=== PATIENT | male | born 1945 | race Caucasian/White ===

== ENCOUNTER 2017-10-14 11:42 | Emergency (ER) | payer MEDICARE, OTHER, SELFPAY ==
[2017-10-14 11:45] VITALS: BP 142/73; PULSE 104; RESP 18; TEMP 36.5; O2SAT 100; BMI 25.1
--- NOTE | 2017-10-14 11:59 | DI.RAD.S_ITS ---
PROCEDURE: XR CHEST 1V INDICATIONS: chest pain TECHNIQUE: One view of the chest was acquired. COMPARISON: None. FINDINGS: Surgical changes and devices: None. Lungs and pleura: No pleural effusions or pneumothorax. Lungs are clear. Mediastinum: Mediastinal contours appear normal. Heart size is normal. Bones and chest wall: No suspicious bony lesions. Overlying soft tissues appear unremarkable. IMPRESSION: No acute cardiopulmonary pathology. Dictated by: Nasim Jalloh M.D. on 10/14/2017 at 12:12 Approved by: Nasim Jalloh M.D. on 10/14/2017 at 12:12
--- NOTE | 2017-10-14 12:13 | ED.SYNCOPE ---
HPI - Syncope <Mitra Putnam PA-C - Last Filed: 10/14/17 17:27> General Chief Complaint: Syncope Stated Complaint: fainted earlier,abnormal ekg Time Seen by Provider: 10/14/17 12:12 Source: patient Mode of arrival: ambulatory Limitations: no limitations History of Present Illness HPI narrative: This 72-year-old male is sent to ED from urgent care today for syncopal episode. He got out of bed this morning and went into the bathroom. He was only out for a few minutes. 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 His saw him pass out. She states that he fell straight to the floor on his side. She states that he was completely ?out?, despite her shaking him and trying to wake him up. She states that this took a few minutes, and initially he seemed groggy and was not able to answer questions correctly (thought the year was 2014). She states that he seemed confused for as much as 30 min, then seemed mentally back to normal. She did not note any appearance of facial or extremity weakness nor any seizure-like activity. Currently, patient states he has a slight headache in his mandaen is sore where he fell. He does not have any neck pain. He denies any other new symptoms today such as chest pain, dyspnea, palpitations. He does not have any vomiting or nausea currently. He has had some intermittent loose stools up to 3 times daily for about a month for which he recently saw his PCP. He has not had any changes today. He has been doing his normal activities, perhaps a little bit less food intake due to the diarrhea. Syncopal episode occurred about 5 and 1/2 hr ago. He has not had any symptoms like this before. He does note that a few months ago he increased his lisinopril back to 20 mg daily and his blood pressure was on the low side at home after this happened, systolic blood pressure 104. Related Data Home Medications Medication Instructions Recorded Confirmed aspirin [Aspir-81] 81 mg PO DAILY 10/14/17 10/14/17 cetirizine [Zyrtec] 10 mg PO DAILY 10/14/17 10/14/17 cholecalciferol (vitamin D3) 2,000 unit PO DAILY 10/14/17 10/14/17 [Vitamin D3] lisinopril 20 mg PO DAILY 10/14/17 10/14/17 Allergies Allergy/AdvReac Type Severity Reaction Status Date / Time No Known Drug Allergies Allergy Verified 10/14/17 11:50 Review of Systems <Mitra Putnam PA-C - Last Filed: 10/14/17 17:27> Review of Systems All systems reviewed & are unremarkable except as noted in HPI and below Exam <Mitra Putnam PA-C - Last Filed: 10/14/17 17:27> Narrative Exam Narrative: GENERAL APPEARANCE: Patient sitting comfortably, in no distress. HEENT: PERRL, EOMI, normal TMs and oropharynx. There is no hematoma over the right mandaen but he is mildly tender. NECK: Supple, no masses LUNGS: Clear to auscultation bilaterally. HEART: Rate and rhythm regular without murmur, normal S1 and S2, no S3 or S4. ABDOMEN: Soft, NT, ND, + BS x 4 quadrants NEUROLOGIC: Alert and oriented, normal speech, gait and coordination. There is no facial droop, no pronator drift in the extremities. MUSCULOSKELETAL: No point tenderness over the cervical spine. Full Csp AROM DERM: No exanthem Initial Vital Signs Initial Vital Signs: Vital Signs Temperature 97.7 F 10/14/17 11:45 Pulse Rate 104 H 10/14/17 11:45 Respiratory Rate 18 10/14/17 11:45 Blood Pressure 142/73 H 10/14/17 11:45 Pulse Oximetry 100 10/14/17 11:45 <Deepika Grant DO - Last Filed: 10/17/17 12:27> Initial Vital Signs Initial Vital Signs: Vital Signs Temperature 97.7 F 10/14/17 11:45 Pulse Rate 104 H 10/14/17 11:45 Respiratory Rate 18 10/14/17 11:45 Blood Pressure 142/73 H 10/14/17 11:45 Pulse Oximetry 100 10/14/17 11:45 Scores <BRIANA Ramírez Last Filed: 10/14/17 17:27> PERC Score Age greater than or equal to 50 years: Yes Heart rate greater than or equal to 100 bpm: No Room Air O2 Sat less than 95%: No Unilateral leg swelling: No Recent trauma or surgery: No Hemoptysis: No Prior PE or DVT: No Hormone Use: No Total PERC Score: 1 Course <Mitra Putnam PA-C - Last Filed: 10/14/17 17:27> Additional Information: Patient is currently feeling normal as he was at home prior to being seen at urgent care. Urgent care physician felt that he was well enough to come by private vehicle. He has been completely asymptomatic during his stay. Noted his blood pressure on the monitor 102/57, consistent with his low home reading this morning. He did not take his lisinopril this morning secondary to this. Explained that this episode could be related to low blood pressure, however also possibility of seizure given his period of confusion afterwards, or cardiac mediated. Advised follow-up is needed including echocardiogram and possible seizure evaluation. Advised to call PCP and leave a message regarding appointment tomorrow as well as 1st thing in the morning to be seen tomorrow, and he is agreeable. He and his agreed that he would call 911 if any recurrent symptoms or just not feeling right in the interim. They are comfortable with this plan. EKG, lab and exam findings reviewed with Dr. Grant who is agreeable with d/c. Patient advised not to drive until advised by PCP. Orders Ordered: Discontinued Medications Aspirin (Aspirin Chew) 324 mg PO NOW ONE Stop: 10/14/17 12:00 Last Admin: 10/14/17 12:17 Dose: 324 mg Vital Signs - 8 hr 10/14/17 11:45 10/14/17 13:10 10/14/17 13:30 Temperature 97.7 F Pulse Rate 104 H 86 87 Pulse Rate [Orthostatic Lying] Pulse Rate [Orthostatic Sitting] Pulse Rate [Orthostatic Standing] Respiratory Rate 18 17 22 Blood Pressure 142/73 H Blood Pressure [Orthostatic Lying] Blood Pressure [Orthostatic Sitting] Blood Pressure [Orthostatic Standing] Blood Pressure [Right Arm] 102/57 L 109/64 Pulse Oximetry 100 98 97 10/14/17 13:56 10/14/17 14:00 Temperature Pulse Rate 87 Pulse Rate [Orthostatic Lying] 85 Pulse Rate [Orthostatic Sitting] 90 Pulse Rate [Orthostatic Standing] 89 Respiratory Rate 21 Blood Pressure Blood Pressure [Orthostatic Lying] 109/64 Blood Pressure [Orthostatic Sitting] 128/68 Blood Pressure [Orthostatic Standing] 116/70 Blood Pressure [Right Arm] 108/62 Pulse Oximetry 99 <Deepika Grant DO - Last Filed: 10/17/17 12:27> Orders Ordered: Discontinued Medications Aspirin (Aspirin Chew) 324 mg PO NOW ONE Stop: 10/14/17 12:00 Last Admin: 10/14/17 12:17 Dose: 324 mg Vital Signs - 8 hr 10/14/17 11:45 10/14/17 13:10 10/14/17 13:30 Temperature 97.7 F Pulse Rate 104 H 86 87 Pulse Rate [Orthostatic Lying] Pulse Rate [Orthostatic Sitting] Pulse Rate [Orthostatic Standing] Respiratory Rate 18 17 22 Blood Pressure 142/73 H Blood Pressure [Orthostatic Lying] Blood Pressure [Orthostatic Sitting] Blood Pressure [Orthostatic Standing] Blood Pressure [Right Arm] 102/57 L 109/64 Pulse Oximetry 100 98 97 10/14/17 13:56 10/14/17 14:00 Temperature Pulse Rate 87 Pulse Rate [Orthostatic Lying] 85 Pulse Rate [Orthostatic Sitting] 90 Pulse Rate [Orthostatic Standing] 89 Respiratory Rate 21 Blood Pressure Blood Pressure [Orthostatic Lying] 109/64 Blood Pressure [Orthostatic Sitting] 128/68 Blood Pressure [Orthostatic Standing] 116/70 Blood Pressure [Right Arm] 108/62 Pulse Oximetry 99 MDM - Syncope <Mitra Putnam PA-C - Last Filed: 10/14/17 17:27> Lab Data Attestation: I reviewed the patient's lab results. Result diagrams: 10/14/17 12:40 10/14/17 12:40 Lab Results 10/14/17 10/14/17 10/14/17 Range/Units 12:40 12:40 12:40 WBC 8.8 (4.5-11.0) X10^3/uL RBC 4.54 (4.5-5.9) X10^6/uL Hgb 14.9 (13.5-17.5) g/dL Hct 43.2 (41-53) % MCV 95.3 (80-100) fL MCH 32.9 (26-34) PG MCHC 34.5 (30-36) % RDW 12.8 (11.6-14.8) % Plt Count 235 (150-400) X10^3/uL Neut % (Auto) 73.5 (50-75) % Lymph % (Auto) 15.6 L (25-40) % Davidson % (Auto) 8.2 (3-14) % Eos % (Auto) 2.1 (2-4) % Baso % (Auto) 0.6 (0-2) % Neut # (Auto) 6500 H (1981-9301) /uL PT 11.2 (10.1-12.7) SECONDS INR 1.0 (0.9-1.3) APTT 25 L (26.4-36.2) SECONDS D-Dimer (<230) ng/mL Sodium 142 (137-145) mmol/L Potassium 4.8 (3.4-5.1) mmol/L Chloride 104 (98-107) mmol/L Carbon Dioxide 27 (22-32) mmol/L BUN 18 (9-20) mg/dL Creatinine 1.20 (0.66-1.25) mg/dL Estimated GFR 59.2 L (>60) mL/min BUN/Creatinine Ratio 15.0 (6-22) Glucose 84 (80-110) mg/dL Calcium 9.9 (8.4-10.2) mg/dL Total Bilirubin 0.7 (0.2-1.3) mg/dL AST 26 (17-59) IU/L ALT 26 (21-72) IU/L Alkaline Phosphatase 62 (38-126) U/L Total Creatine Kinase 106 (55-170) U/L CK-MB (CK-2) 1.01 (<2.37) ng/mL CK-MB (CK-2) Rel Index 1.0 L (1.5-5.0) % Troponin I < 0.012 (0.01-0.034) ng/mL Total Protein 8.0 (6.3-8.2) g/dL Albumin 4.7 (3.5-5.0) g/dL Globulin 3.3 (1.7-4.1) g/dL Albumin/Globulin Ratio 1.4 (1.0-2.8) Lipase 140 (23-300) U/L 10/14/17 Range/Units 12:40 WBC (4.5-11.0) X10^3/uL RBC (4.5-5.9) X10^6/uL Hgb (13.5-17.5) g/dL Hct (41-53) % MCV (80-100) fL MCH (26-34) PG MCHC (30-36) % RDW (11.6-14.8) % Plt Count (150-400) X10^3/uL Neut % (Auto) (50-75) % Lymph % (Auto) (25-40) % Davidson % (Auto) (3-14) % Eos % (Auto) (2-4) % Baso % (Auto) (0-2) % Neut # (Auto) (8436-7466) /uL PT (10.1-12.7) SECONDS INR (0.9-1.3) APTT (26.4-36.2) SECONDS D-Dimer 316 H (<230) ng/mL Sodium (137-145) mmol/L Potassium (3.4-5.1) mmol/L Chloride (98-107) mmol/L Carbon Dioxide (22-32) mmol/L BUN (9-20) mg/dL Creatinine (0.66-1.25) mg/dL Estimated GFR (>60) mL/min BUN/Creatinine Ratio (6-22) Glucose (80-110) mg/dL Calcium (8.4-10.2) mg/dL Total Bilirubin (0.2-1.3) mg/dL AST (17-59) IU/L ALT (21-72) IU/L Alkaline Phosphatase (38-126) U/L Total Creatine Kinase (55-170) U/L CK-MB (CK-2) (<2.37) ng/mL CK-MB (CK-2) Rel Index (1.5-5.0) % Troponin I (0.01-0.034) ng/mL Total Protein (6.3-8.2) g/dL Albumin (3.5-5.0) g/dL Globulin (1.7-4.1) g/dL Albumin/Globulin Ratio (1.0-2.8) Lipase (23-300) U/L Imaging Data Chest x-ray: Radiologist's impression: View Report History [address] [address] XRay Report Signed Patient: Nikolas Higuera JR MR#: [id number] : 1945 Acct:[id number] Age/Sex: 72 / M Date of Service: 10/14/17 Loc: ED Accession Number: [id number] Procedure: XR chest 1V Ordering Provider: Deepika Grant D.O. PROCEDURE: XR CHEST 1V INDICATIONS: chest pain TECHNIQUE: One view of the chest was acquired. COMPARISON: None. FINDINGS: Surgical changes and devices: None. Lungs and pleura: No pleural effusions or pneumothorax. Lungs are clear. Mediastinum: Mediastinal contours appear normal. Heart size is normal. Bones and chest wall: No suspicious bony lesions. Overlying soft tissues appear unremarkable. IMPRESSION: No acute cardiopulmonary pathology. Dictated by: Nasim Jalloh M.D. on 10/14/2017 at 12:12 Approved by: Nasim Jalloh M.D. on 10/14/2017 at 12:12 CT scan - head: Radiologist's impression: [place] [address] CT Scan Report Signed Patient: Nikolas Higuera JR MR#: [id number] : 1945 Acct:[id number] Age/Sex: 72 / M Date of Service: 10/14/17 Loc: ED Accession Number: [id number] Procedure: CT head/brain wo con Ordering Provider: Mitra Putnam P.A-C PROCEDURE: CT HEAD/BRAIN WO CON INDICATIONS: SYNCOPE, L. mandaen contusion TECHNIQUE: Noncontrast 4.5 mm thick angled axial sections acquired from the foramen magnum to the vertex, with coronal and sagittal reformats. For radiation dose reduction, the following was used: automated exposure control, adjustment of mA and/or kV according to patient size. COMPARISON: None. FINDINGS: Image quality: Excellent. CSF spaces: Basal cisterns are patent. No extra-axial fluid collections. The ventricles are symmetric in size and shape. Brain: No intracranial bleeds or masses. There is cerebral volume loss for age, with resultant ventricular and sulcal prominence. There are periventricular and deep white matter chronic small vessel ischemic changes. There is intracranial internal carotid artery atherosclerosis. Skull and face: Calvarium and visualized facial bones appear intact, without suspicious lesions. Sinuses: Mucosal thickening in bilateral ethmoid sinuses are seen. Mild mucosal thickening in bilateral inferior maxillary sinuses also noted. Bilateral master air cells are well-aerated. IMPRESSION: 1. No CT evidence of acute intracranial pathology. Atrophy and mild to moderate periventricular white matter microangiopathic changes. 2. Mucosal thickening involving bilateral ethmoid sinuses and maxillary sinuses. Dictated by: Nasim Jalloh M.D. on 10/14/2017 at 12:52 Approved by: Nasim Jalloh M.D. on 10/14/2017 at 12:53 ECG Data Attestation: I personally reviewed and interpreted this ECG as follows: (Normal sinus rhythm with LAD and right bundle branch pattern, unchanged from 90 min prior to arrival) Prior ECG tracings: available for review (urgent care prior to arrival) <Deepika Grant DO - Last Filed: 10/17/17 12:27> Lab Data Lab Results 10/14/17 10/14/17 10/14/17 Range/Units 12:40 12:40 12:40 WBC 8.8 (4.5-11.0) X10^3/uL RBC 4.54 (4.5-5.9) X10^6/uL Hgb 14.9 (13.5-17.5) g/dL Hct 43.2 (41-53) % MCV 95.3 (80-100) fL MCH 32.9 (26-34) PG MCHC 34.5 (30-36) % RDW 12.8 (11.6-14.8) % Plt Count 235 (150-400) X10^3/uL Neut % (Auto) 73.5 (50-75) % Lymph % (Auto) 15.6 L (25-40) % Davidson % (Auto) 8.2 (3-14) % Eos % (Auto) 2.1 (2-4) % Baso % (Auto) 0.6 (0-2) % Neut # (Auto) 6500 H (5227-1168) /uL PT 11.2 (10.1-12.7) SECONDS INR 1.0 (0.9-1.3) APTT 25 L (26.4-36.2) SECONDS D-Dimer (<230) ng/mL Sodium 142 (137-145) mmol/L Potassium 4.8 (3.4-5.1) mmol/L Chloride 104 (98-107) mmol/L Carbon Dioxide 27 (22-32) mmol/L BUN 18 (9-20) mg/dL Creatinine 1.20 (0.66-1.25) mg/dL Estimated GFR 59.2 L (>60) mL/min BUN/Creatinine Ratio 15.0 (6-22) Glucose 84 (80-110) mg/dL Calcium 9.9 (8.4-10.2) mg/dL Total Bilirubin 0.7 (0.2-1.3) mg/dL AST 26 (17-59) IU/L ALT 26 (21-72) IU/L Alkaline Phosphatase 62 (38-126) U/L Total Creatine Kinase 106 (55-170) U/L CK-MB (CK-2) 1.01 (<2.37) ng/mL CK-MB (CK-2) Rel Index 1.0 L (1.5-5.0) % Troponin I < 0.012 (0.01-0.034) ng/mL Total Protein 8.0 (6.3-8.2) g/dL Albumin 4.7 (3.5-5.0) g/dL Globulin 3.3 (1.7-4.1) g/dL Albumin/Globulin Ratio 1.4 (1.0-2.8) Lipase 140 (23-300) U/L 10/14/17 Range/Units 12:40 WBC (4.5-11.0) X10^3/uL RBC (4.5-5.9) X10^6/uL Hgb (13.5-17.5) g/dL Hct (41-53) % MCV (80-100) fL MCH (26-34) PG MCHC (30-36) % RDW (11.6-14.8) % Plt Count (150-400) X10^3/uL Neut % (Auto) (50-75) % Lymph % (Auto) (25-40) % Davidson % (Auto) (3-14) % Eos % (Auto) (2-4) % Baso % (Auto) (0-2) % Neut # (Auto) (9285-4694) /uL PT (10.1-12.7) SECONDS INR (0.9-1.3) APTT (26.4-36.2) SECONDS D-Dimer 316 H (<230) ng/mL Sodium (137-145) mmol/L Potassium (3.4-5.1) mmol/L Chloride (98-107) mmol/L Carbon Dioxide (22-32) mmol/L BUN (9-20) mg/dL Creatinine (0.66-1.25) mg/dL Estimated GFR (>60) mL/min BUN/Creatinine Ratio (6-22) Glucose (80-110) mg/dL Calcium (8.4-10.2) mg/dL Total Bilirubin (0.2-1.3) mg/dL AST (17-59) IU/L ALT (21-72) IU/L Alkaline Phosphatase (38-126) U/L Total Creatine Kinase (55-170) U/L CK-MB (CK-2) (<2.37) ng/mL CK-MB (CK-2) Rel Index (1.5-5.0) % Troponin I (0.01-0.034) ng/mL Total Protein (6.3-8.2) g/dL Albumin (3.5-5.0) g/dL Globulin (1.7-4.1) g/dL Albumin/Globulin Ratio (1.0-2.8) Lipase (23-300) U/L Discharge Plan Departure Patient Disposition: Home Clinical Impression: Syncope Discharge Date/Time: 10/14/17 14:27 Interventions: ED Discharge Assessment Last Done: 10/14/17 14:26 Instructions: DI for Syncope in Adults (Fainting) Activity Restrictions/Additional Instructions: Please return as we talked about if you have any recurrent symptoms or are not feeling right. Otherwise, please leave a message with your primary care office today that you were here and need to be seen tomorrow for follow-up, then call 1st thing in the morning when they open for an appointment. The source of your fainting was not clear from your testing today. We did not find any acute problem with your heart or brain. It is possible that this was related to low blood pressure. Please take your EKG with you that was done by Dr. Marinelli. Do not take your lisinopril for now. Check a few relaxed blood pressure reading between this afternoon and your appointment tomorrow if you are able. Have fluids and something salty to eat today. You should not drive until you have follow-up and determine what, if any, other testing you may need such as echocardiogram or evaluation for seizures. Prescriptions: No Action lisinopril 20 mg Tablet 20 mg PO DAILY RF: 0 cetirizine [Zyrtec] 10 mg Tablet 10 mg PO DAILY RF: 0 aspirin [Aspir-81] 81 mg Tablet,Delayed Release (Dr/Ec) 81 mg PO DAILY RF: 0 cholecalciferol (vitamin D3) [Vitamin D3] 2,000 unit Capsule 2,000 unit PO DAILY RF: 0 Referrals: Majo Platt MD [Non-Staff] - <Deepika Grant DO - Last Filed: 10/17/17 12:27> Cosign ED Attending Cosignature Attestation: I was immediately available in the department for consultation. EKG was reviewed. This documentation has been reviewed and I agree with assessment and plan. Supervised by Deepika Grant DO
[2017-10-14] MEDS: ASPIRIN 81 MG TAB 324 MG PO (12:17)
--- NOTE | 2017-10-14 12:35 | DI.CT.S_ITS ---
PROCEDURE: CT HEAD/BRAIN WO CON INDICATIONS: SYNCOPE, L. oriental orthodox contusion TECHNIQUE: Noncontrast 4.5 mm thick angled axial sections acquired from the foramen magnum to the vertex, with coronal and sagittal reformats. For radiation dose reduction, the following was used: automated exposure control, adjustment of mA and/or kV according to patient size. COMPARISON: None. FINDINGS: Image quality: Excellent. CSF spaces: Basal cisterns are patent. No extra-axial fluid collections. The ventricles are symmetric in size and shape. Brain: No intracranial bleeds or masses. There is cerebral volume loss for age, with resultant ventricular and sulcal prominence. There are periventricular and deep white matter chronic small vessel ischemic changes. There is intracranial internal carotid artery atherosclerosis. Skull and face: Calvarium and visualized facial bones appear intact, without suspicious lesions. Sinuses: Mucosal thickening in bilateral ethmoid sinuses are seen. Mild mucosal thickening in bilateral inferior maxillary sinuses also noted. Bilateral master air cells are well-aerated. IMPRESSION: 1. No CT evidence of acute intracranial pathology. Atrophy and mild to moderate periventricular white matter microangiopathic changes. 2. Mucosal thickening involving bilateral ethmoid sinuses and maxillary sinuses. Dictated by: Nasim Jalloh M.D. on 10/14/2017 at 12:52 Approved by: Nasim Jalloh M.D. on 10/14/2017 at 12:53
[2017-10-14 12:50] LABS: Add Manual Diff / Slide Review NO; Basophils Percent Auto 0.6 % (0-2); Eosinophils Percent Auto 2.1 % (2-4); Hematocrit 43.2 % (41-53); Hemoglobin 14.9 g/dL (13.5-17.5); Lymphocytes Percent Auto 15.6 % (25-40); Mean Corpuscular HGB Conc 34.5 % (30-36); Mean Corpuscular Hemoglobin 32.9 PG (26-34); Mean Corpuscular Volume 95.3 fL (80-100); Monocytes Percent Auto 8.2 % (3-14); Neutrophils Absolute Auto 6500 /uL (3000-5900); Neutrophils Percent Auto 73.5 % (50-75); Platelet Count 235 X10^3/uL (150-400); Red Blood Cell Count 4.54 X10^6/uL (4.5-5.9); Red Cell Distribution Width 12.8 % (11.6-14.8); White Blood Cell Count 8.8 X10^3/uL (4.5-11.0)
[2017-10-14 13:02] LABS: Alanine Aminotransferase 26 IU/L (21-72); Albumin 4.7 g/dL (3.5-5.0); Albumin Globulin Ratio 1.4 (1.0-2.8); Alkaline Phosphatase 62 U/L (38-126); Aspartate Aminotransferase 26 IU/L (17-59); Bilirubin Total 0.7 mg/dL (0.2-1.3); Blood Urea Nitrogen 18 mg/dL (9-20); Calcium 9.9 mg/dL (8.4-10.2); Carbon Dioxide 27 mmol/L (22-32); Chloride 104 mmol/L (98-107); Creatine Kinase 106 U/L (55-170); Estimated Glomerular Filt Rate 59.2 mL/min (>60); Globulin 3.3 g/dL (1.7-4.1); Glucose 84 mg/dL (80-110); HEMOLYSIS < 15 (0-50); Lipase 140 U/L (23-300); Potassium 4.8 mmol/L (3.4-5.1); Prothrombin Time 11.2 SECONDS (10.1-12.7); Sodium 142 mmol/L (137-145)
[2017-10-14 13:04] LABS: PTT Partial Thromboplastin Tim 25 SECONDS (26.4-36.2)
[2017-10-14 13:06] LABS: D Dimer 316 ng/mL (<230)
[2017-10-14 13:10] VITALS: BP 102/57; PULSE 86; RESP 17; O2SAT 98
[2017-10-14 13:13] LABS: Troponin I < 0.012 ng/mL (0.01-0.034)
[2017-10-14 13:18] LABS: Creatine Kinase MB 1.01 ng/mL (<2.37)
[2017-10-14 13:30] VITALS: BP 109/64; PULSE 87; RESP 22; O2SAT 97
[2017-10-14 13:56] VITALS: BP 109/64; BP 116/70; BP 128/68; PULSE 85; PULSE 89; PULSE 90
[2017-10-14 14:00] VITALS: BP 108/62; PULSE 87; RESP 21; O2SAT 99
== END 2017-10-14 14:27 | disposition home or self-care (01) ==
PROVIDERS: Emergency Medicine; Emergency Provider Internal Medicine
DX: R55 Syncope and collapse (principal)
CPT/HCPCS: 36415; 70450; 71045; 80053; 82550; 82553; 83690; 84484; 85025; 85379; 85610; 85730; 93005; 93010; 99283; 99285

== ENCOUNTER 2017-12-18 07:56 | Day surgery (SDC) | payer MEDICARE, OTHER, SELFPAY ==
[2017-12-18 08:15] VITALS: BP 131/76; PULSE 93; RESP 24; TEMP 36.6; O2SAT 99; BMI 25.1
[2017-12-18] MEDS: SODIUM CHLORIDE 0.9% 1,000 ML 70 ML IV (08:15)
--- NOTE | 2017-12-18 08:16 | P.HP_ITS ---
History of Present Illness Date Patient Seen: 12/18/17 Chief complaint: colonoscopy [id number] Narrative: 72-year-old male room who is here for colon polyp surveillance. Last colonoscopy performed 2007 at [facility], report is not available but patient states he had no polyps on that exam. The colonoscopy prior to that he did have polyps. Patient History Medical History HTN (hypertension) (Chronic) Lumbar degenerative disc disease (Chronic) History of prostate cancer (Resolved) Surgical History History of prostatectomy (Resolved) Family & Social History Tobacco & Substance use: Smoking Status Never smoker alcohol intake frequency 0-2 drinks per day Substance Use Type does not use Meds Home Medications Medication Instructions Recorded Confirmed Type aspirin [Aspir-81] 81 mg PO DAILY 10/14/17 12/18/17 History cetirizine [Zyrtec] 10 mg PO DAILY 10/14/17 12/18/17 History cholecalciferol (vitamin D3) 2,000 unit PO DAILY 10/14/17 12/18/17 History [Vitamin D3] lisinopril 20 mg PO DAILY 10/14/17 12/18/17 History Allergies Allergy/AdvReac Type Severity Reaction Status Date / Time No Known Drug Allergies Allergy Verified 10/14/17 11:50 Review of Systems Review of Systems All systems reviewed & are unremarkable except as noted in HPI and below Exam Narrative Exam Narrative: General: Patient is well developed, not in apparent distress Cardiovascular: Regular rate and rhythm, no murmurs, rubs, or gallops; no evidence of edema; no palpable abdominal aortic aneurysm Gastrointestinal: Normoactive bowel sounds, soft, nontender, nondistended, no rebound tenderness, no hepatosplenomegaly, no evidence of hernia Assessment & Plan Plan: Assessment/Plan Narrative: 72-year-old male with history of colon polyps here for polyp surveillance by means of colonoscopy Regarding the procedure(s), the risks and potential complications, benefits, and alternatives (including not doing the procedure) were discussed with the patient. The risks include but are not limited to bleeding, splenic injury, infection, perforation which may require surgical intervention, missed lesions, and adverse reactions to sedative medicines. After a question and answer period , the patient agreed to proceed with the procedure(s) and gives informed consent.
--- NOTE | 2017-12-18 09:30 | PM.OP.ENDO ---
Operative Date/Time/Diagnoses Date of procedure: 12/18/17 Procedure Notes Procedure in detail: Surgeon: Kendrick Arias MD Procedure: Colonoscopy Preoperative diagnosis: Colon polyp surveillance Postoperative diagnosis: Grade 2 internal hemorrhoids Medications: Conscious sedation using 4 mg IV of Midazolam and 100 mcg IV of Fentanyl Preanesthesia Assessment An H and P was performed/updated and the Px?s ASA class is 2. The procedure was discussed in detail with the patient. The potential risks and complications including infection, bleeding, missed lesions, perforation, need for surgery in case of perforation, prolonged hospital stay, and were explained. A brief question and answer period was allotted and once all questions were answered, informed consent was obtained. The patient was brought back to the procedure room and placed on standard monitoring. The patient?s vital signs were monitored continuously throughout the entire procedure. Prior to starting, a timeout was performed to confirm the patient?s identity, allergies, medications, and procedure. Procedure in detail The patient was placed in left lateral decubitus position and once adequate sedation was obtained a GIBSON was performed. The digital rectal examination did not reveal any palpable lesions. The tip of the colonoscope was placed in the anal canal and advanced without difficulty all the way to the cecum which was identified by the appendiceal orifice and the ileocecal valve. The terminal ileum was intubated to a distance of 5 cm from the ileocecal valve with no note of mucosal abnormality. The colonoscope was brought back to the cecum and careful examination of all rosenberg of the colon was performed with irrigation of any residual stool The colonic mucosa appeared normal with no evidence of polyps. In the sigmoid colon there was note of a few scattered medium-sized diverticula. Retroflexion was performed in the rectum which revealed grade 2 internal hemorrhoids. The patient tolerated the procedure well and will be brought back to the recovery area to be discharged once criteria are met. The prep was judged to be good/excellent and adequate to identify polyps less than 5 mm. The withdrawal time was 9 min. The total physician intraservice time was 13 min. Complications There were no complications and estimated blood loss was zero. Recommendations: Resume previous diet Continue outPx medications Given patient's age and findings on this colonoscopy and prior colonoscopy no further polyp surveillance is warranted An emergency contact number was given to the patient for any complications related to the procedure
--- NOTE | 2017-12-18 09:36 | SUR.OPER ---
Cecum reached at 0936.
[2017-12-18 09:48] VITALS: BP 89/58; PULSE 84; RESP 14; TEMP 37.2; O2SAT 94
--- NOTE | 2017-12-18 09:54 | PM.DS.1 ---
History of Present Illness Chief complaint: colonoscopy 26231 Narrative: 72-year-old male room who is here for colon polyp surveillance. Last colonoscopy performed 2007 at [facility], report is not available but patient states he had no polyps on that exam. The colonoscopy prior to that he did have polyps. Discharge Providers Primary care physician: Majo Platt MD Discharge provider: Kendrick Arias MD Discharge Date: 12/18/17 Exam Vital Signs (past 8 hours): - 12/18/17 08:15 12/18/17 09:48 Temperature 98 F 99 F Pulse Rate 93 H 84 Respiratory Rate 24 14 Blood Pressure 131/76 89/58 L Pulse Oximetry 99 94 Oxygen Delivery Method Room Air Narrative Exam Narrative: General: Patient is well developed, not in apparent distress Cardiovascular: Regular rate and rhythm, no murmurs, rubs, or gallops; no evidence of edema; no palpable abdominal aortic aneurysm Gastrointestinal: Normoactive bowel sounds, soft, nontender, nondistended, no rebound tenderness, no hepatosplenomegaly, no evidence of hernia Discharge Plan Discharge Plan Patient Disposition: Home Discharge Med Rec/Prescriptions Prescriptions: Continue lisinopril 20 mg Tablet 20 mg PO DAILY RF: 0 cetirizine [Zyrtec] 10 mg Tablet 10 mg PO DAILY RF: 0 aspirin [Aspir-81] 81 mg Tablet,Delayed Release (Dr/Ec) 81 mg PO DAILY RF: 0 cholecalciferol (vitamin D3) [Vitamin D3] 2,000 unit Capsule 2,000 unit PO DAILY RF: 0 Discharge Orders: Discharge (Order); Ordered 12/18/17 Ordered By: Kendrick Arias Provider Discharge Instructions Diet: Diet as Tolerated Visit Report/Discharge Packet Stand Alone Forms: Surgery Discharge Discharge Data Primary Care Provider: Majo Platt Attending Provider: Kendrick Arias
[2017-12-18] MEDS: fentaNYL 250 MCG/5 ML INJ IV (10:01)
[2017-12-18] MEDS: MIDAZOLAM 5 MG/5 ML VIAL IV (10:02)
[2017-12-18 10:13] VITALS: BP 103/58; PULSE 86; RESP 15; TEMP 36.6; O2SAT 96
[2017-12-18 10:30] VITALS: BP 105/68; PULSE 87; RESP 16; TEMP 36.6; O2SAT 99
== END 2017-12-18 10:35 | disposition home or self-care (01) ==
PROVIDERS: PCP Family Medicine; Visit Provider Internal Medicine Gastroenterology
PROC: 0DJD8ZZ Inspection of Lower Intestinal Tract, Via Natural or Artificial Opening Endoscopic (ICD-10-PCS; CPT 45378; principal; 2017-12-18 10:00)
DX: Z86.010 Personal history of colon polyps (principal); K57.30 Diverticulosis of large intestine without perforation or abscess without bleeding; I10 Essential (primary) hypertension
CPT/HCPCS: G0105; J2250; J3010

== ENCOUNTER 2018-01-07 08:05 | Emergency (ER) | payer MEDICARE, OTHER, SELFPAY ==
[2018-01-07 08:16] VITALS: BP 127/62; PULSE 90; RESP 10; TEMP 36.6; O2SAT 100
--- NOTE | 2018-01-07 08:42 | ED.SYNCOPE ---
HPI - Syncope General Chief Complaint: Syncope Stated Complaint: Syncope Time Seen by Provider: 01/07/18 08:18 Source: patient and EMS Mode of arrival: EMS Limitations: no limitations History of Present Illness HPI narrative: He is a 72-year-old male who presents after syncopal episode. He states he got up to urinate this morning when he passed out for under a minute. He remembers trying to grab the towel rack to hold on any woke up to his over him. He denies any chest pain heart palpitations blurry vision normal. He takes aspirin daily. This happen to him 1 other time in October while urinating. At that time he had head CT blood work. He has no complaints. Denies any injury during the fall. He did not hit his head. He is feeling better. Prodromal symptoms: none Witnessed: yes - by bystander Context: standing up (while urinating) History: previous syncopal episode Treatments prior to arrival: none Related Data Home Medications Medication Instructions Recorded Confirmed aspirin [Aspir-81] 81 mg PO DAILY 10/14/17 01/07/18 cetirizine [Zyrtec] 10 mg PO DAILY 10/14/17 01/07/18 cholecalciferol (vitamin D3) 2,000 unit PO DAILY 10/14/17 01/07/18 [Vitamin D3] lisinopril 20 mg PO DAILY 10/14/17 01/07/18 Allergies Allergy/AdvReac Type Severity Reaction Status Date / Time No Known Drug Allergies Allergy Verified 10/14/17 11:50 Review of Systems Review of Systems All systems reviewed & are unremarkable except as noted in HPI and below Constitutional Denies chills, Denies fever(s), Denies lethargy and Denies weakness Eyes Denies change in vision, Denies eye discharge, Denies irritation and Denies loss of vision ENT Ears, Nose, Mouth, and Throat: Denies change in voice, Denies neck pain and Denies sore throat Cardiovascular Reports as per HPI, Reports syncope, Denies dyspnea and Denies dyspnea on exertion Respiratory Denies cough, Denies dyspnea, Denies dyspnea on exertion and Denies wheezing Gastrointestinal Gastrointestinal: Denies abdominal pain, Denies change in bowel habits, Denies diarrhea, Denies nausea and Denies vomiting Musculoskeletal Denies back pain and Denies neck pain Integumentary/Breasts Denies pruritus, Denies erythema, Denies rash and Denies wounds Neurologic Reports syncope, Denies focal weakness, Denies loss of vision, Denies convulsions and Denies weakness Allergic/Immunologic Denies wheezing [facility] Medical History HTN (hypertension) (Chronic) Lumbar degenerative disc disease (Chronic) History of prostate cancer (Resolved) Surgical History History of prostatectomy (Resolved) Social History household members: spouse Smoking Status: Never smoker Exam Initial Vital Signs Initial Vital Signs: Vital Signs Temperature 98 F 01/07/18 08:16 Pulse Rate 90 01/07/18 08:16 Respiratory Rate 10 L 01/07/18 08:16 Blood Pressure 127/62 01/07/18 08:16 Pulse Oximetry 100 01/07/18 08:16 GENERAL: Alert well-appearing elderly male in no acute distress HEENT: Head atraumatic no contusions no depressions,EOMI, pupils reactive, face symmetric, CARDIOVASCULAR: Regular rate and rhythm without murmurs, rubs or gallops. RESPIRATORY: Breath sounds equal bilaterally, no wheezes rales or rhonchi. ABDOMEN: Soft, nontender. Normoactive bowel sounds all 4 quadrants. No guarding or rebound. EXTREMITIES: Normal range of motion, no clubbing or edema. Neurovascularly intact NEUROLOGICAL: Alert and oriented x4.Normal gait and speech. Cranial nerves II through XII grossly intact. SKIN: Warm, dry, no laceration, no petechiae, no rashes or lesions. Scores NIH Stroke Scale Level of Conciousness: Alert, keenly responsive Ask month/age: Answers both questions correctly. Open/close eyes, close hand: Performs both tasks correctly Best gaze horizontal: Normal Visual ruiz: No visual loss Facial palsy: Normal symetrical movement Left arm drift: No drift for full 10 sec Right arm drift: No drift for full 10 sec Left leg drift: No drift for full 10 sec Right leg drift: No drift for full 10 sec Limb ataxia: Absent Sensory on face/arms/legs: Normal, no sensory loss Best language: No aphasia, normal Dysarthria: Normal Extinction or inattention: No abnormality Total NIH Stroke scale score: 0 Course Orders Ordered: ED Orders 01/07/18 08:40 Complete Blood Count AUTO DIFF Stat Comprehensive Metabolic Panel Stat Troponin & CK Cardiac Panel Stat 01/07/18 09:05 Urinalysis and Microscopic Stat Vital Signs - 8 hr 01/07/18 09:45 Pulse Rate 80 Respiratory Rate 17 Blood Pressure [Right Arm] 114/58 L Pulse Oximetry 100 MDM - Syncope Lab Data Attestation: I reviewed the patient's lab results. Result diagrams: 01/07/18 08:40 01/07/18 08:40 Lab Results 01/07/18 01/07/18 01/07/18 Range/Units 08:40 08:40 09:05 WBC 5.9 (4.5-11.0) X10^3/uL RBC 4.52 (4.5-5.9) X10^6/uL Hgb 14.4 (13.5-17.5) g/dL Hct 42.6 (41-53) % MCV 94.3 (80-100) fL MCH 31.9 (26-34) PG MCHC 33.8 (30-36) % RDW 12.8 (11.6-14.8) % Plt Count 269 (150-400) X10^3/uL Neut % (Auto) 64.9 (50-75) % Lymph % (Auto) 19.5 L (25-40) % Real % (Auto) 9.9 (3-14) % Eos % (Auto) 4.8 H (2-4) % Baso % (Auto) 0.9 (0-2) % Neut # (Auto) 3800 (2626-1503) /uL Sodium 143 (137-145) mmol/L Potassium 4.0 (3.4-5.1) mmol/L Chloride 105 (98-107) mmol/L Carbon Dioxide 25 (22-32) mmol/L BUN 14 (9-20) mg/dL Creatinine 1.10 (0.66-1.25) mg/dL Estimated GFR > 60.0 (>60) mL/min BUN/Creatinine Ratio 12.7 (6-22) Glucose 100 (80-110) mg/dL Calcium 9.2 (8.4-10.2) mg/dL Total Bilirubin 0.8 (0.2-1.3) mg/dL AST 28 (17-59) IU/L ALT 30 (21-72) IU/L Alkaline Phosphatase 74 (38-126) U/L Total Creatine Kinase 49 L (55-170) U/L CK-MB (CK-2) TNP CK-MB (CK-2) Rel Index TNP Troponin I < 0.012 (0.01-0.034) ng/mL Total Protein 7.8 (6.3-8.2) g/dL Albumin 4.4 (3.5-5.0) g/dL Globulin 3.4 (1.7-4.1) g/dL Albumin/Globulin Ratio 1.3 (1.0-2.8) Urine Color Yellow Urine Appearance Clear Urine pH 8.5 H (4.5-8.0) Ur Specific Villalba 1.015 (1.000-1.035) Urine Protein Negative (Negative) Urine Glucose (UA) Negative (Normal) g/dL Urine Ketones Negative (NEGATIVE) Urine Occult Blood Negative (Negative) Urine Nitrate Negative (Negative) Urine Bilirubin Negative (NEGATIVE) Urine Urobilinogen 0.2 (0.2) E.U./dL Ur Leukocyte Esterase Negative (NEGATIVE) Urine RBC None seen (0-5/HPF) Urine WBC None seen (0-5/HPF) Urine Bacteria None seen (None) Ur Culture Indicated? Cult not indicated Micro UA Comment Microscopic normal ECG Data Attestation: I personally reviewed and interpreted this ECG as follows: Prior ECG tracings: available for review Interpretation: Right bundle-branch block rate [address] changes similar to previous EKG MDM Narrative Medical decision making narrative: Patient had micurination s syncope. This is his 2nd episode of the same. I talked about Holter monitor and sitting down while urinating. Patient feels ready and able to go home. Patient has no sign of trauma no focal deficits no need for head CT at this time. I discussed all findings with the patient and spouse, Education has been performed regarding treatment plan, diagnosis, warning signs and symptoms and all concerns have been addressed. Verbally agree with and understood all of the above. Discharge Plan Departure Patient Disposition: Home Clinical Impression: Micturition syncope Discharge Date/Time: 01/07/18 10:08 Interventions: ED Discharge Assessment Last Done: 01/07/18 10:07 Instructions: DI for Syncope in Adults (Fainting) Activity Restrictions/Additional Instructions: *You have been diagnosed with micturition syncope *What to do: Recommend sitting down while urinate to help prevent from falling. His increase fluids. May require further testing with her PCP but not at this time *Continue to take medications as directed *Follow up with your primary care provider in 2-3 days *Return to ER if you should have recurrent episodes, chest pain, heart palpitation or any new, worsening or concerning symptoms Prescriptions: No Action lisinopril 20 mg Tablet 20 mg PO DAILY RF: 0 cetirizine [Zyrtec] 10 mg Tablet 10 mg PO DAILY RF: 0 aspirin [Aspir-81] 81 mg Tablet,Delayed Release (Dr/Ec) 81 mg PO DAILY RF: 0 cholecalciferol (vitamin D3) [Vitamin D3] 2,000 unit Capsule 2,000 unit PO DAILY RF: 0 Referrals: Majo Platt MD [Primary Care Provider] -
[2018-01-07 08:50] LABS: Add Manual Diff / Slide Review NO; Basophils Percent Auto 0.9 % (0-2); Eosinophils Percent Auto 4.8 % (2-4); Hematocrit 42.6 % (41-53); Hemoglobin 14.4 g/dL (13.5-17.5); Lymphocytes Percent Auto 19.5 % (25-40); Mean Corpuscular HGB Conc 33.8 % (30-36); Mean Corpuscular Hemoglobin 31.9 PG (26-34); Mean Corpuscular Volume 94.3 fL (80-100); Monocytes Percent Auto 9.9 % (3-14); Neutrophils Absolute Auto 3800 /uL (3000-5900); Neutrophils Percent Auto 64.9 % (50-75); Platelet Count 269 X10^3/uL (150-400); Red Blood Cell Count 4.52 X10^6/uL (4.5-5.9); Red Cell Distribution Width 12.8 % (11.6-14.8); White Blood Cell Count 5.9 X10^3/uL (4.5-11.0)
[2018-01-07 09:04] LABS: Alanine Aminotransferase 30 IU/L (21-72); Albumin 4.4 g/dL (3.5-5.0); Albumin Globulin Ratio 1.3 (1.0-2.8); Alkaline Phosphatase 74 U/L (38-126); Aspartate Aminotransferase 28 IU/L (17-59); BUN Creatinine Ratio 12.7 (6-22); Bilirubin Total 0.8 mg/dL (0.2-1.3); Blood Urea Nitrogen 14 mg/dL (9-20); Calcium 9.2 mg/dL (8.4-10.2); Carbon Dioxide 25 mmol/L (22-32); Chloride 105 mmol/L (98-107); Creatine Kinase 49 U/L (55-170); Estimated Glomerular Filt Rate > 60.0 mL/min (>60); Globulin 3.4 g/dL (1.7-4.1); Glucose 100 mg/dL (80-110); HEMOLYSIS < 15 (0-50); Sodium 143 mmol/L (137-145); Total Protein 7.8 g/dL (6.3-8.2)
[2018-01-07 09:06] LABS: Bacteria Urine None Seen; RBC Urine None Seen (0-5/HPF); WBC Urine None Seen (0-5/HPF)
[2018-01-07 09:09] LABS: Appearance Urine UA CLEAR; Bilirubin Urine UA NEGATIVE (NEGATIVE); Color Urine UA YELLOW; Glucose Urine UA NEGATIVE (Normal); Ketones Urine UA NEGATIVE (NEGATIVE); Leukocyte Esterase Urine UA NEGATIVE (NEGATIVE); Nitrite Urine UA NEGATIVE (Negative); Occult Blood Urine UA NEGATIVE (Negative); Protein Urine UA NEGATIVE (Negative); Specific Gravity Urine UA 1.015 (1.000-1.035); Urobilinogen Urine UA 0.2 E.U./dL (0.2); pH Urine UA 8.5 (4.5-8.0)
[2018-01-07 09:17] LABS: Troponin I < 0.012 ng/mL (0.01-0.034)
[2018-01-07 09:21] LABS: Culture Indicated Urine Cult Not Indicated; Urine Comments Microscopic Normal
[2018-01-07 09:45] VITALS: BP 114/58; PULSE 80; RESP 17; O2SAT 100
== END 2018-01-07 10:08 | disposition home or self-care (01) ==
PROVIDERS: Emergency Provider Emergency Medicine; PCP Family Medicine
DX: R55 Syncope and collapse (principal)
CPT/HCPCS: 36415; 80053; 81001; 82550; 84484; 85025; 93005; 99283; 99284

== ENCOUNTER → 2019-11-24 09:14 | Outpatient (CLI) | payer MEDICARE, OTHER, SELFPAY ==
--- NOTE | 2019-11-24 | DI.US.S_ITS ---
PROCEDURE: US ABDOMEN COMPLETE INDICATIONS: Right upper quadrant pain TECHNIQUE: Real-time scanning was performed of the abdominal and retroperitoneal organs, with image documentation. COMPARISON: None. FINDINGS: Note: Exam is somewhat limited by acoustic windows due to bowel gas. Liver: Left lobe of the liver is not well seen. The right lobe of the liver is normal in size. Normal echogenicity. Gallbladder: Nondilated. No stones or sludge. Normal gallbladder wall thickness. No pericholecystic fluid. Negative sonographic Regalado's sign. Biliary ducts: Intrahepatic bile ducts are non-dilated. Extrahepatic bile duct caliber measures 3 mm. Normal is 6-7 mm or less in diameter, or 10 mm or less post-cholecystectomy. Pancreas: Not well seen. Spleen: Spleen is normal in size and homogeneous in echotexture. 10.6 cm. Kidneys: Kidneys are normal in size and echotexture. Right kidney measures 10.8 cm long; left kidney measures 9.7 cm long. No hydronephrosis or nephrolithiasis. No solid masses. Complicated cyst in the left kidney inferior pole measuring at 2.4 x 2.3 x 2 cm. There is a thin septation and irregular wall. Aorta: Proximal aorta not visualized. Mid 2 cm. Distal 1.7 cm. Atherosclerotic plaque noted. Iliacs: Proximal common iliac arteries are normal in caliber at less than 2.5 cm. Measures 0.9 cm bilaterally. IVC: Intrahepatic inferior vena cava is patent. Miscellaneous: No free abdominal fluid. IMPRESSION: Exam is limited by bowel gas and acoustic windows. 1. No acute cholecystitis. No gallstones. 2. No hydronephrosis. 3. Mildly complicated cyst in the inferior pole the left kidney 2.4 cm. -recommend follow-up renal ultrasound or CT in 12 months. If clinically indicated consider further evaluation with a CT abdomen pelvis with IV contrast with right upper quadrant abdominal pain. Dictated by: Sreedhar Reynolds M.D. on 11/24/2019 at 17:05 Approved by: Sreedhar Reynolds M.D. on 11/24/2019 at 17:09
--- NOTE | 2019-11-24 | DI.RAD.S_ITS ---
PROCEDURE: XR CHEST 2V INDICATIONS: Right upper quadrant pain TECHNIQUE: 2 views of the chest were acquired. COMPARISON: [facility], , XR CHEST 1V, 10/14/2017, 12:04. FINDINGS: Surgical changes and devices: None. Lungs and pleura: Lungs are clear, aside from bilateral scattered calcified granulomata. No pleural effusions or pneumothorax. Mediastinum: Mediastinal contours are normal. Heart size is normal. Bones and chest wall: No suspicious bony abnormalities. Soft tissues appear unremarkable. IMPRESSION: Remote granulomatous changes; otherwise no acute cardiopulmonary disease. Dictated by: Alberto Valdez [facility] Interpreted: Nevaeh Mariee MD on 11/24/2019 at 10:11 Approved by: Nevaeh Mariee M.D. on 11/24/2019 at 13:17
== END ==
PROVIDERS: PCP Physician Assistant; Referring Provider Physician Assistant; Visit Provider Physician Assistant
DX: R10.11 Right upper quadrant pain (principal); N28.1 Cyst of kidney, acquired; R07.89 Other chest pain; R05 Cough; R06.00 Dyspnea, unspecified; J98.4 Other disorders of lung; R91.8 Other nonspecific abnormal finding of lung field; R19.7 Diarrhea, unspecified; R63.0 Anorexia; M25.511 Pain in right shoulder
CPT/HCPCS: 71046; 76700

== ENCOUNTER → 2019-12-12 11:29 | Outpatient (CLI) | payer MEDICARE, OTHER, SELFPAY ==
--- NOTE | 2019-12-12 | DI.RAD.S_ITS ---
PROCEDURE: XR HIP W PEL IF DONE LT MIN 4V INDICATIONS: PAIN STIFFNESS TECHNIQUE: AP pelvis with lateral view(s) of both hip(s). COMPARISON: [facility], CR, XR CHEST 2V, 12/12/2019, 11:23. [facility], CR, XR SHOULDER RT MIN 2V, 12/12/2019, 11:23. FINDINGS: Bones: No fractures or dislocations. Pelvic ring appears intact. No suspicious bony lesions. Age-appropriate lower lumbar spine degenerative changes are noted. There is mild superior joint space narrowing seen of both hips, with associated remodeling changes with subchondral sclerosis and osteophyte formation. Soft tissues: The visualized bowel gas pattern is normal. No suspicious soft tissue calcifications. Pelvic lymph node dissection clips are seen on both sides. IMPRESSION: Mild degenerative changes are seen of both hips by plain film. Pelvic lymph node dissection clips are seen. Lower lumbar spine degenerative change. Dictated by: David Murray M.D. on 12/12/2019 at 12:03 Approved by: David Murray M.D. on 12/12/2019 at 12:04
--- NOTE | 2019-12-12 | DI.RAD.S_ITS ---
PROCEDURE: XR CHEST 2V INDICATIONS: HX OF DISPACED R CLAVICLE TECHNIQUE: 2 views of the chest were acquired. COMPARISON: [facility], CR, XR CHEST 1V, 10/14/2017, 12:04. [facility], CR, XR CHEST 2V, 11/24/2019, 9:22. FINDINGS: Surgical changes and devices: An event monitor can be seen anteriorly and on the left. Lungs and pleura: Lungs are clear. No pleural effusions or pneumothorax. Mediastinum: Mediastinal contours are normal. Heart size is normal. Bones and chest wall: There is a remote right clavicle fracture, with poor healing. The appearance is similar to 2018. No suspicious bony abnormalities. Age-appropriate bony degenerative changes are seen. Soft tissues appear unremarkable. IMPRESSION: Remote right clavicle fracture. Clear lungs. Dictated by: David Murray M.D. on 12/12/2019 at 12:01 Approved by: David Murray M.D. on 12/12/2019 at 12:02
--- NOTE | 2019-12-12 | DI.RAD.S_ITS ---
PROCEDURE: XR SHOULDER RT MIN 2V INDICATIONS: H OF DISPLACED FRACTURE RT CLAVICLE TECHNIQUE: 3 views of the shoulder were acquired. COMPARISON: [facility], CR, XR CHEST 1V, 10/14/2017, 12:04. [facility], CR, XR CHEST 2V, 11/24/2019, 9:22. [facility], CR, XR HIP W PEL IF DONE HAIR 3TO4V, 12/12/2019, 11:23. [facility], CR, XR CHEST 2V, 12/12/2019, 11:23. FINDINGS: Bones: There is a stable, poorly healed right clavicle fracture seen, without significant change compared to 2018. No acute fractures or dislocations. No suspicious bony lesions. Visualized ribs appear intact. Soft tissues: Calcific tendinopathy is seen. The visualized lung demonstrates an unremarkable appearance. IMPRESSION: Poorly healed right clavicle fracture, which is not significantly changed compared to 2018. Calcific tendinopathy is seen. Dictated by: David Murray M.D. on 12/12/2019 at 12:05 Approved by: David Murray M.D. on 12/12/2019 at 12:07
== END ==
PROVIDERS: PCP Family Medicine; Referring Provider Physician Assistant; Visit Provider Physician Assistant
DX: R07.89 Other chest pain (principal); M25.511 Pain in right shoulder; M25.552 Pain in left hip; M25.551 Pain in right hip; S42.001S Fracture of unspecified part of right clavicle, sequela; M47.816 Spondylosis without myelopathy or radiculopathy, lumbar region; M67.911 Unspecified disorder of synovium and tendon, right shoulder
CPT/HCPCS: 71046; 73030; 73522

== ENCOUNTER 2019-12-12 14:51 | Emergency (ER) | payer MEDICARE, OTHER, SELFPAY ==
[2019-12-12 15:04] VITALS: BP 119/60; PULSE 98; RESP 16; TEMP 37.1; O2SAT 96; BMI 23.3
--- NOTE | 2019-12-12 15:13 | DI.RAD.S_ITS ---
PROCEDURE: XR CHEST 1V INDICATIONS: chest pain TECHNIQUE: One view of the chest was acquired. COMPARISON: [facility], CR, XR CHEST 1V, 10/14/2017, 12:04. FINDINGS: Surgical changes and devices: cardiac monitor noted. Lungs and pleura: Lungs are clear. No pleural effusions or pneumothorax. Mediastinum: Mediastinal contours appear normal. Heart size is normal. Bones and chest wall: No suspicious bony lesions. Overlying soft tissues appear unremarkable. 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 IMPRESSION: No acute cardiopulmonary disease process. Dictated by: Abi Fenton MD, PhD on 12/12/2019 at 15:23 Approved by: Abi Fenton MD, PhD on 12/12/2019 at 15:24
--- NOTE | 2019-12-12 15:15 | ED_ITS ---
HPI - Syncope General Chief Complaint: Syncope Stated Complaint: syncope Time Seen by Provider: 12/12/19 14:55 Source: patient Mode of arrival: EMS Limitations: no limitations History of Present Illness HPI narrative: Patient is a 74-year-old male with history of syncope and loop recorder device presenting after syncopal episode. He was in his normal state of health this morning a running errands even driving to the hospital for outpatient x-rays he returned home and started dismantled thing the security system. He says he got a little dizzy and lightheaded and fell to the floor. As he was coming around he remembered to apply his loop recorder to his chest. He thinks he was out for 1-2 minutes and his found him. He now is overall feeling much better. He denies any focal deficits nausea or vomiting. He says that he has had episodes of syncope in the past which is why he has a loop recorder however not since 2018. He is followed by Dr. Ordaz, his office in [facility] monitors the loop recorder Related Data Home Medications Medication Instructions Recorded Confirmed aspirin [Aspir-81] 81 mg PO DAILY 10/14/17 01/07/18 cetirizine [Zyrtec] 10 mg PO DAILY 10/14/17 01/07/18 cholecalciferol (vitamin D3) 2,000 unit PO DAILY 10/14/17 01/07/18 [Vitamin D3] lisinopril 20 mg PO DAILY 10/14/17 01/07/18 Allergies Allergy/AdvReac Type Severity Reaction Status Date / Time No Known Drug Allergies Allergy Verified 12/12/19 15:08 Review of Systems Review of Systems ROS Unobtainable: All systems reviewed & are unremarkable except as noted in HPI and below Constitutional Constitutional: Denies chills, Denies fever(s), Denies lethargy and Denies weakness Eyes Eyes: Denies change in vision, Denies eye discharge, Denies irritation and Denies loss of vision Cardiovascular Cardiovascular: Reports as per HPI, Denies chest pain, Denies chest pain at rest, Reports syncope, Denies irregular heart rhythm, Denies leg ulcers, Denies dyspnea and Denies dyspnea on exertion Respiratory Respiratory: Denies cough, Denies dyspnea, Denies dyspnea on exertion and Denies wheezing Gastrointestinal Gastrointestinal: Denies abdominal pain, Denies change in bowel habits, Denies diarrhea, Denies nausea and Denies vomiting Musculoskeletal Musculoskeletal: Reports back pain (Chronic) Integumentary/Breasts Skin/Breast: Denies pruritus, Denies erythema, Denies rash and Denies wounds Neurologic Neurologic: Reports syncope, Denies loss of vision and Denies weakness Allergic/Immunologic Allergic/Immunologic: Denies wheezing Patient History Medical History History of prostate cancer (Resolved) HTN (hypertension) (Chronic) Lumbar degenerative disc disease (Chronic) Surgical History History of prostatectomy (Resolved) Social History household members: spouse Smoking Status: Never smoker Smoking Status: Never smoker alcohol intake frequency: 0-2 drinks per day Alcohol type: beer Substance Use Type: does not use Exam Initial Vital Signs Initial Vital Signs: Vital Signs Temperature 98.7 F 12/12/19 15:04 Pulse Rate 98 H 12/12/19 15:04 Respiratory Rate 16 12/12/19 15:04 Blood Pressure 119/60 12/12/19 15:04 Pulse Oximetry 96 12/12/19 15:04 GENERAL: Well-appearing, well-nourished and in no acute distress. HEENT: Head atraumatic,EOMI, pupils reactive, face symmetric, moist mucous membranes CARDIOVASCULAR: Regular rate and rhythm without murmurs, rubs or gallops. RESPIRATORY: Breath sounds equal bilaterally, no wheezes rales or rhonchi. ABDOMEN: Soft, nontender. Normoactive bowel sounds all 4 quadrants. No guarding or rebound. EXTREMITIES: Normal range of motion, no clubbing or edema. Neurovascularly intact NEUROLOGICAL: Alert and oriented x4.Normal gait and speech. Cranial nerves II through XII grossly intact. Good mktpay-mw-etjq, good turu-mp-wfge, strength equal bilaterally, no dysarthria or aphasia, sensation in tact to soft touch bilaterally, no visual changes, no facial droop SKIN: Warm, dry, no laceration, no petechiae, no rashes or lesions. Scores NIH Stroke Scale Level of Conciousness: Alert, keenly responsive Ask month/age: Answers both questions correctly. Open/close eyes, close hand: Performs both tasks correctly Best gaze horizontal: Normal Visual ruiz: No visual loss Facial palsy: Normal symetrical movement Left arm drift: No drift for full 10 sec Right arm drift: No drift for full 10 sec Left leg drift: No drift for full 5 sec Right leg drift: No drift for full 5 sec Limb ataxia: Absent Sensory on face/arms/legs: Normal, no sensory loss Best language: No aphasia, normal Dysarthria: Normal Extinction or inattention: No abnormality Total NIH Stroke scale score: 0 Course Orders Ordered: ED Orders 12/12/19 15:01 Complete Blood Count AUTO DIFF Stat Comprehensive Metabolic Panel Stat Lipase Stat Partial Thromboplastin Time Stat Prothrombin Time INR Stat Troponin & CK Cardiac Panel Stat 12/12/19 15:13 XR chest 1V Stat EKG-12 Lead Stat 12/12/19 15:34 CT head/brain wo con Stat Vital Signs Vital signs: Vital Signs - 8 hr 12/12/19 15:04 12/12/19 15:21 12/12/19 15:30 Temperature 98.7 F Pulse Rate 98 H 99 H 103 H Respiratory Rate 16 Blood Pressure 119/60 120/84 125/69 Pulse Oximetry 96 98 99 12/12/19 16:00 Temperature Pulse Rate 101 H Respiratory Rate Blood Pressure Pulse Oximetry 97 MDM - Syncope Lab Data Attestation: I reviewed the patient's lab results. Result diagrams: 12/12/19 15:01 12/12/19 15:01 Labs: Lab Results 12/12/19 12/12/19 12/12/19 Range/Units 15:01 15:01 15:01 WBC 10.4 (4.5-11.0) X10^3/uL RBC 3.98 L (4.5-5.9) X10^6/uL Hgb 12.4 L (13.5-17.5) g/dL Hct 37.8 L (41-53) % MCV 94.9 (80-100) fL MCH 31.2 (26-34) PG MCHC 32.8 (30-36) % RDW 12.4 (11.6-14.8) % Plt Count 286 (150-400) X10^3/uL Neut % (Auto) 79.8 H (50-75) % Lymph % (Auto) 8.4 L (25-40) % [place] % (Auto) 10.1 (3-14) % Eos % (Auto) 1.3 L (2-4) % Baso % (Auto) 0.4 (0-2) % Neut # (Auto) 8300 H (7154-3636) /uL Lymph # (Auto) 900 L (5697-6945) /uL [place] # (Auto) 1000 H (0-900) /uL Eos # (Auto) 100 (0-450) /uL Baso # (Auto) 0 (0-100) /uL PT 12.4 (10.1-12.7) SECONDS INR 1.1 (0.9-1.3) APTT 28 D (26.4-36.2) SECONDS Sodium 137 (137-145) mmol/L Potassium 4.2 (3.4-5.1) mmol/L Chloride 105 (98-107) mmol/L Carbon Dioxide 25 (22-32) mmol/L BUN 24 H (9-20) mg/dL Creatinine 1.40 H (0.66-1.25) mg/dL Estimated GFR 49.3 L (>60) mL/min BUN/Creatinine Ratio 17.1 (6-22) Glucose 110 (80-110) mg/dL Calcium 9.3 (8.4-10.2) mg/dL Total Bilirubin 0.5 (0.2-1.3) mg/dL AST 31 (17-59) IU/L ALT 29 (<50) IU/L Alkaline Phosphatase 82 (38-126) U/L Total Creatine Kinase 69 (55-170) U/L CK-MB (CK-2) TNP CK-MB (CK-2) Rel Index TNP Troponin I 0.014 (0.01-0.034) ng/mL Total Protein 7.7 (6.3-8.2) g/dL Albumin 4.1 (3.5-5.0) g/dL Globulin 3.6 (1.7-4.1) g/dL Albumin/Globulin Ratio 1.1 (1.0-2.8) Lipase 160 (23-300) U/L Point of Care Testing Glucose POC [address] scan - head: Radiologist's Impression: PROCEDURE: CT HEAD/BRAIN WO CON INDICATIONS: syncope TECHNIQUE: Noncontrast 4.5 mm thick angled axial sections acquired from the foramen magnum to the vertex, with coronal and sagittal reformats. For radiation dose reduction, the following was used: automated exposure control, adjustment of mA and/or kV according to patient size. COMPARISON: [facility], CT, CT HEAD/BRAIN WO CON, 10/14/2017, 12:35. FINDINGS: Image quality: Excellent. CSF spaces: Basal cisterns are patent. No extra-axial fluid collections. The ventricles are symmetric in size and shape. Brain: No intracranial bleeds or masses. There is cerebral volume loss for age, with resultant ventricular and sulcal prominence. There are periventricular and deep white matter chronic small vessel ischemic changes. There is intracranial internal carotid artery and vertebral artery atherosclerosis. Skull and face: Calvarium and visualized facial bones appear intact, without suspicious lesions. Sinuses: Mucosal thickening noted in the maxillary sinuses bilaterally and scattered throughout the ethmoid air cells bilaterally. Diffuse scattered opacities noted in the right mastoid air cells. The left mastoids are clear. IMPRESSION: 1. No acute intracranial disease process. 2. Mucosal thickening involving the maxillary sinuses and ethmoid air cells bilaterally. 3. Trace fluid in the right mastoid air cells. Dictated by: Abi Fenton MD, PhD on 12/12/2019 at 16:00 Approved by: Abi Fenton MD, PhD on 12/12/2019 at 16:02 ECG Data Attestation: I personally reviewed and interpreted this ECG as follows: Prior ECG tracings: available for review Interpretation: Normal sinus rhythm rate 104 similar to previous EKG in 2018 with right bundle-branch block, p.r. interval 143 QRS [address] changes MDM Narrative Medical decision making narrative: The patient has history of micturition syncope according to our records. He is followed closely with cardiology and telling him. at bedside now states possible polymyalgia rheumatica and is supposed to start prednisone. They received a call from the PCP today. He is ambulatory without any issue in the ED. At this time I am unable to assess the loop recorder it is assessed at by cardiology office. Patient is ambulatory without symptoms. 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 I also recommend that you take prednisone as recommended by your PCP and further evaluation for polymyalgia rheumatica *Continue to take medications as directed *Follow up with your primary care provider in 2-3 days *Return to ER if you should have recurrent episode of passing out, chest pain, heart palpitations, or any new, worsening or concerning symptoms Prescriptions: No Action lisinopril 20 mg Tablet 20 mg PO DAILY RF: 0 cetirizine [Zyrtec] 10 mg Tablet 10 mg PO DAILY RF: 0 aspirin [Aspir-81] 81 mg Tablet,Delayed Release (Dr/Ec) 81 mg PO DAILY RF: 0 cholecalciferol (vitamin D3) [Vitamin D3] 2,000 unit Capsule 2,000 unit PO DAILY RF: 0 Referrals: Arsenio Marinelli MD [Primary Care Provider] - Michael Herrera MD [Non-Staff] -
[2019-12-12 15:21] VITALS: BP 120/84; PULSE 99; O2SAT 98
[2019-12-12 15:26] LABS: Add Manual Diff / Slide Review NO; Basophils Absolute Auto 0 /uL (0-100); Basophils Percent Auto 0.4 % (0-2); Eosinophils Absolute Auto 100 /uL (0-450); Eosinophils Percent Auto 1.3 % (2-4); Hematocrit 37.8 % (41-53); Hemoglobin 12.4 g/dL (13.5-17.5); Lymphocytes Absolute Auto 900 /uL (1100-4500); Lymphocytes Percent Auto 8.4 % (25-40); Mean Corpuscular HGB Conc 32.8 % (30-36); Mean Corpuscular Hemoglobin 31.2 PG (26-34); Mean Corpuscular Volume 94.9 fL (80-100); Monocytes Absolute Auto 1000 /uL (0-900); Monocytes Percent Auto 10.1 % (3-14); Neutrophils Absolute Auto 8300 /uL (1500-7000); Neutrophils Percent Auto 79.8 % (50-75); Platelet Count 286 X10^3/uL (150-400); Red Blood Cell Count 3.98 X10^6/uL (4.5-5.9); Red Cell Distribution Width 12.4 % (11.6-14.8); White Blood Cell Count 10.4 X10^3/uL (4.5-11.0)
[2019-12-12 15:28] LABS: INR 1.1 (0.9-1.3); Prothrombin Time 12.4 SECONDS (10.1-12.7)
[2019-12-12 15:30] VITALS: BP 125/69; PULSE 103; O2SAT 99
[2019-12-12 15:30] LABS: Alanine Aminotransferase 29 IU/L (<50); Albumin 4.1 g/dL (3.5-5.0); Albumin Globulin Ratio 1.1 (1.0-2.8); Alkaline Phosphatase 82 U/L (38-126); Aspartate Aminotransferase 31 IU/L (17-59); BUN Creatinine Ratio 17.1 (6-22); Bilirubin Total 0.5 mg/dL (0.2-1.3); Blood Urea Nitrogen 24 mg/dL (9-20); Calcium 9.3 mg/dL (8.4-10.2); Carbon Dioxide 25 mmol/L (22-32); Chloride 105 mmol/L (98-107); Creatine Kinase 69 U/L (55-170); Estimated Glomerular Filt Rate 49.3 mL/min (>60); Globulin 3.6 g/dL (1.7-4.1); Glucose 110 mg/dL (80-110); HEMOLYSIS < 15 (0-50); Lipase 160 U/L (23-300); Potassium 4.2 mmol/L (3.4-5.1); Sodium 137 mmol/L (137-145); Total Protein 7.7 g/dL (6.3-8.2)
[2019-12-12 15:31] LABS: PTT Partial Thromboplastin Tim 28 SECONDS (26.4-36.2)
--- NOTE | 2019-12-12 15:34 | DI.CT.S_ITS ---
PROCEDURE: CT HEAD/BRAIN WO CON INDICATIONS: syncope TECHNIQUE: Noncontrast 4.5 mm thick angled axial sections acquired from the foramen magnum to the vertex, with coronal and sagittal reformats. For radiation dose reduction, the following was used: automated exposure control, adjustment of mA and/or kV according to patient size. COMPARISON: [facility], CT, CT HEAD/BRAIN WO CON, 10/14/2017, 12:35. FINDINGS: Image quality: Excellent. CSF spaces: Basal cisterns are patent. No extra-axial fluid collections. The ventricles are symmetric in size and shape. Brain: No intracranial bleeds or masses. There is cerebral volume loss for age, with resultant ventricular and sulcal prominence. There are periventricular and deep white matter chronic small vessel ischemic changes. There is intracranial internal carotid artery and vertebral artery atherosclerosis. Skull and face: Calvarium and visualized facial bones appear intact, without suspicious lesions. Sinuses: Mucosal thickening noted in the maxillary sinuses bilaterally and scattered throughout the ethmoid air cells bilaterally. Diffuse scattered opacities noted in the right mastoid air cells. The left mastoids are clear. IMPRESSION: 1. No acute intracranial disease process. 2. Mucosal thickening involving the maxillary sinuses and ethmoid air cells bilaterally. 3. Trace fluid in the right mastoid air cells. Dictated by: Abi Fenton MD, PhD on 12/12/2019 at 16:00 Approved by: Abi Fenton MD, PhD on 12/12/2019 at 16:02
[2019-12-12 15:42] LABS: Troponin I 0.014 ng/mL (0.01-0.034)
[2019-12-12 16:00] VITALS: PULSE 101; O2SAT 97
== END 2019-12-12 17:08 | disposition home or self-care (01) ==
PROVIDERS: Emergency Provider Emergency Medicine; PCP Family Medicine
DX: R55 Syncope and collapse (principal); R42 Dizziness and giddiness; M54.9 Dorsalgia, unspecified; R07.9 Chest pain, unspecified
CPT/HCPCS: 36415; 70450; 71045; 71046; 73030; 73522; 80053; 82550; 83690; 84484; 85025; 85610; 85730; 93005; 93010; 99284

== ENCOUNTER → 2020-12-26 10:08 | Outpatient (CLI) | payer MEDICARE, OTHER, SELFPAY ==
[2020-12-26 11:25] LABS: COVID19 -Nasal RAPID Negative (Negative)
== END ==
PROVIDERS: PCP Family Medicine; Visit Provider Physician Assistant
DX: Z01.812 Encounter for preprocedural laboratory examination (principal); Z20.822 Contact with and (suspected) exposure to COVID-19
CPT/HCPCS: 87635

== ENCOUNTER 2020-12-28 08:24 | Day surgery (SDC) | payer MEDICARE, OTHER, SELFPAY ==
[2020-12-28] VITALS (7 sets, daily range): BP systolic 82–120; BP diastolic 45–68; PULSE 68–85; RESP 12–18; TEMP 36.4–37.1; O2SAT 73–100; BMI 23.6
--- NOTE | 2020-12-28 | PATH_ITS ---
[facility] Accession Number: [id number] . 01 Material submitted: . PART A: duodenum - DUODENAL BIOPSY PART B: gastrointestinal site - GASTRIC BIOPSY . 01 Clinical history: . A: RULE OUT CELIAC B: RULE OUT H.PYLORI . 02 Diagnosis: A. Duodenum, Biopsy: Duodenal mucosa with no diagnostic abnormality. Negative for active inflammation, features of sprue, dysplasia, or malignancy. . B. Stomach, Biopsy: Gastric body mucosa with minimal chronic inflammation. Negative for Helicobacter by immunohistochemistry. Negative for intestinal metaplasia. Negative for dysplasia or malignancy. . MRV 01/02/2021 1216 Local . 02 Electronically signed: . Dom Lopez MD, PhD, Pathologist NPI- [id number] . 01 Gross description: . Part A: DUODENAL BIOPSY: Received in formalin are 2 fragment(s) of guthrie, soft tissue measuring 0.1 x 0.1 x 0.1 cm to 0.3 x 0.3 x 0.3 cm submitted entirely in 1 cassette(s) Part B: GASTRIC BIOPSY: Received in formalin are 2 fragment(s) of guthrie, soft tissue measuring 0.2 x 0.2 x 0.2 cm to 0.4 x 0.2 x 0.2 cm submitted entirely in 1 cassette(s) /NYA 12/29/2020 0159 Local . 02 Microscopic: . An immunohistochemical stain was performed to evaluate for Helicobacter organisms and is negative. The control stain showed appropriate reactivity. . * This test was developed and its performance characteristics determined by [facility]. It has not been cleared or approved by the U.S. Food and Drug Administration. The FDA has determined that such clearance or approval is not necessary. This test is used for clinical purposes. It should not be regarded as investigational or for research. . 02 Pathologist provided ICD-10: K29.70 . 02 CPT . 971978, 709493, E06425 Performed at: 01 [facility] [address] [id number] MD Gary Tobin MD Phone: [phone] Performed at: [id number] [place], [place] [id number] MD Yecenia Workman MD Phone: [phone]
[2020-12-28] MEDS: SODIUM CHLORIDE 0.9% 1,000 ML 84 ML IV (09:10)
--- NOTE | 2020-12-28 09:18 | PM.HP.1 ---
History of Present Illness History of Present Illness Chief complaint: EGD W/POSS BX Narrative: Anorexia and weight loss Patient History Medical History (Updated 12/27/19 @ 00:00 by ) History of prostate cancer HTN (hypertension) Lumbar degenerative disc disease Surgical History History of prostatectomy Hx of hernia repair Family & Social History Family History Mother Hypertension Father Heart disease Social History: household members spouse Tobacco & Substance use: Smoking Status Never smoker alcohol intake current alcohol intake frequency 0-2 drinks per day Substance Use Type does not use Meds Home Medications and Allergies Home Medications Medication Instructions Recorded Confirmed Type cholecalciferol (vitamin D3) 50 2,000 unit PO DAILY 10/14/17 12/28/20 History mcg (2,000 unit) capsule (Vitamin D3) lisinopril 20 mg tablet 20 mg PO DAILY 10/14/17 12/28/20 History vit A 7,160 unit-vit C 113 mg-vit tab PO 12/17/19 12/17/19 History E 100 hoxp-nqba-gydgqs tablet cetirizine 10 mg capsule (Zyrtec) 10 mg PO DAILY 12/28/20 12/28/20 History famotidine 10 mg tablet (Pepcid AC) 10 mg PO DAILY 12/28/20 12/28/20 History vitamins A,C,Z-deen-encixo 14,320 1 cap PO BID 12/28/20 12/28/20 History unit-226 mg-200 unit capsule (PreserVision AREDS) Allergies Allergy/AdvReac Type Severity Reaction Status Date / Time No Known Drug Allergies Allergy Verified 12/28/20 08:37 Exam Vital Signs (past 8 hours): - 12/28/20 08:52 Temperature 98.7 F Pulse Rate 81 Respiratory Rate 16 Blood Pressure 120/64 Pulse Oximetry 99 Oxygen Delivery Method Room Air Narrative Exam Narrative: Oropharynx free of lesions Chest clear to auscultation percussion Cardiac exam reveals no S3 or murmur Assessment & Plan Assessment & Plan narrative: Weight loss and anorexia. Rule out gastroduodenal lesion as potential cause. Risks, benefits, alternatives have been explained for EGD. Time Spent With Patient Critical Care time: I spent a total of [] minutes of critical care time on this patient's care today; this time is exclusive of procedural time.
--- NOTE | 2020-12-28 09:19 | PM.OP.EGD ---
Operative Date/Time/Diagnoses Date of procedure: 12/28/20 Pre-op diagnosis: See indication and findings Procedure & Clinicians Study performed: EGD Indications: Anorexia weight loss Surgeon: Mj Toussaint Procedure Notes Procedure in detail: After informed consent obtained the patient was placed in left lateral decubitus position. The video upper scope was placed into the oropharynx and with the patient's help swelled into the esophagus. The esophagus stomach and duodenum were carefully examined. On withdrawal retroflexed view the GE junction was performed. The scope was removed. The patient tolerated procedure well. Blood loss none Complications none Inhibitors at that time. Sedation MAC Findings 1. Grade B esophagitis with at least 2 erosions at the squamocolumnar junction 2. Patchy gastric erythema biopsies taken to rule out Helicobacter 3. Normal duodenal bulb and sweep biopsies taken to rule out celiac Will follow up on biopsies and decide whether to increase his proton pump
== END 2020-12-28 10:15 | disposition home or self-care (01) ==
PROVIDERS: PCP Family Medicine; Referring Provider Internal Medicine Gastroenterology; Visit Provider Internal Medicine Gastroenterology
PROC: 0DJ08ZZ Inspection of Upper Intestinal Tract, Via Natural or Artificial Opening Endoscopic (ICD-10-PCS; CPT 43235; principal; 2020-12-28 09:30)
DX: K22.10 Ulcer of esophagus without bleeding (principal); K29.50 Unspecified chronic gastritis without bleeding; R63.0 Anorexia; R63.4 Abnormal weight loss
CPT/HCPCS: 43239; J2704

== ENCOUNTER → 2021-06-12 10:10 | Outpatient (CLI) | payer MEDICARE, OTHER, SELFPAY ==
[2021-06-12 11:11] LABS: COVID19 -Nasal RAPID Negative (Negative)
== END ==
PROVIDERS: PCP Family Medicine; Visit Provider Family Medicine Sleep Medicine
DX: Z20.822 Contact with and (suspected) exposure to COVID-19 (principal)
CPT/HCPCS: 87635; C9803

== ENCOUNTER 2021-06-14 09:47 | Day surgery (SDC) | payer MEDICARE, OTHER, SELFPAY ==
[2021-06-14 10:25] VITALS: BP 110/71; PULSE 81; RESP 16; TEMP 37.1; O2SAT 100; BMI 23.9
[2021-06-14] MEDS: LACTATED RINGERS 1,000 ML 42 ML IV (10:54)
--- NOTE | 2021-06-14 11:35 | P.HP_ITS ---
History of Present Illness History of Present Illness Chief complaint[place] [facility] [place] history of esophagitis Patient History Medical History (Updated 12/27/19 @ 00:00 by ) History of prostate cancer HTN (hypertension) Lumbar degenerative disc disease Surgical History (Updated 06/14/21 @ 11:00 by Steven Jones RN) History of prostatectomy Hx of cataract surgery Hx of hernia repair Family & Social History Family History Mother Hypertension Father Heart disease Social History: household members spouse Tobacco & Substance use: Smoking Status Never smoker alcohol intake current alcohol intake frequency a few times a week Substance Use Type does not use Meds Home Medications and Allergies Home Medications Medication Instructions Recorded Confirmed Type cholecalciferol (vitamin D3) 50 2,000 unit PO DAILY 10/14/17 06/14/21 History mcg (2,000 unit) capsule (Vitamin D3) lisinopril 20 mg tablet 10 mg PO BID 10/14/17 06/14/21 History vit A 7,160 unit-vit C 113 mg-vit See Rx Instructions .ROUTE .COMPLEX 12/17/19 06/14/21 History E 100 wvik-yayo-uhyueo tablet cetirizine 10 mg capsule (Zyrtec) 10 mg PO DAILY 12/28/20 06/14/21 History famotidine 10 mg tablet (Pepcid AC) 10 mg PO DAILY PRN 12/28/20 06/14/21 History atorvastatin 40 mg tablet 40 mg PO BEDTIME 06/14/21 06/14/21 History meloxicam See Rx Instructions .ROUTE .COMPLEX 06/14/21 06/14/21 History omeprazole 20 mg capsule,delayed 20 mg PO BID 06/14/21 06/14/21 History release Allergies Allergy/AdvReac Type Severity Reaction Status Date / Time adhesive tape AdvReac Intermediate Blister Verified 06/14/21 11:00 Review of Systems Review of Systems Narrative: Negative Exam Vital Signs (past 8 hours): - 06/14/21 10:25 Temperature 98.8 F Pulse Rate 81 Respiratory Rate 16 Blood Pressure 110/71 Pulse Oximetry 100 Oxygen Delivery Method Room Air Narrative Exam Narrative: Awake alert and oriented x3, pupils equal round reactive to light, oropharynx clear, heart regular rate and rhythm, lungs clear to auscultation bilaterally, abdomen nontender and nondistended, extremities without edema, no gross neurologic deficits noted Assessment & Plan Assessment & Plan narrative: History of GERD with esophagitis for EGD Time Spent With Patient Critical Care time: I spent a total of [] minutes of critical care time on this patient's care today; this time is exclusive of procedural time.
--- NOTE | 2021-06-14 11:35 | PM.OP.EGD ---
Operative Date/Time/Diagnoses Date of procedure: 06/14/21 Procedure & Clinicians Study performed: Diagnostic EGD Indications: History of GERD with esophagitis. Follow-up to confirm healing of esophagitis Procedure Notes Procedure in detail: Prior to the procedure, history and physical was performed, and patient medications and allergies were reviewed. Preprocedure nursing history and assessment was reviewed. Patient identification and proposed procedure were verified by the physician and nurse in the procedure room. The physical status of the patient was reassessed after the procedure. After informed consent was obtained including risks, benefits, and alternatives, the scope was passed under direct vision. Throughout the procedure, the patient's blood pressure, pulse, and oxygen saturations were monitored continuously. The upper endoscope was introduced through the mouth and advanced to the 2nd portion of the duodenum. Retroflexion was performed in the stomach. The patient tolerated the procedure well. The entire examined esophagus was normal appearing. There were some spasms of the esophagus at the lower portion. The GE junction was located at 40 cm and the Z-line was regular. Hill grade III gastroesophageal flap (GE flap valve hardly present and not tight around the endoscope) A single small sessile polyp was noted in the proximal gastric body. The stomach was otherwise normal appearing. Normal appearing examined duodenum Complications: none Impression: Normal appearing esophagus. Regular Z-line Hill grade III GE flap configuration Small fundic gland polyp noted in stomach Normal appearing duodenum Post-procedure Plan for aftercare: Continue home medications Resume previous diet Follow anti-reflux diet and lifestyle modifications Follow-up in GI clinic Patient has a contact number available for emergencies. The signs and symptoms of potential delayed complications were discussed with the patient. Return to normal activities tomorrow. Written discharge instructions were provided to the patient. Discharge home with escort
[2021-06-14 11:38] VITALS: BP 84/50; PULSE 68; RESP 15; TEMP 36.9; O2SAT 93
[2021-06-14 11:42] VITALS: BP 91/54; PULSE 69; RESP 14; O2SAT 93
[2021-06-14 11:47] VITALS: BP 97/60; PULSE 71; RESP 16; O2SAT 97
[2021-06-14 11:52] VITALS: BP 106/64; PULSE 74; RESP 15; O2SAT 97
[2021-06-14 11:57] VITALS: BP 111/67; PULSE 75; RESP 15; O2SAT 99
== END 2021-06-14 12:14 | disposition home or self-care (01) ==
PROVIDERS: PCP Family Medicine; Referring Provider Internal Medicine; Visit Provider Internal Medicine
PROC: 0DJ08ZZ Inspection of Upper Intestinal Tract, Via Natural or Artificial Opening Endoscopic (ICD-10-PCS; CPT 43235; principal; 2021-06-14 11:00)
DX: Z87.19 Personal history of other diseases of the digestive system (principal); K31.7 Polyp of stomach and duodenum
CPT/HCPCS: 43235; J2704

== ENCOUNTER → 2022-07-05 10:25 | Outpatient (CLI) | payer MEDICARE, OTHER, SELFPAY ==
--- NOTE | 2022-07-05 | DI.CT.S_ITS ---
PROCEDURE: CT ABDOMEN PELVIS W CON INDICATIONS: Periumbilical pain TECHNIQUE: After the administration of oral and intravenous contrast, axial sections were acquired from the lung bases to the pubic symphysis. Coronal and sagittal reformats were performed. For radiation dose reduction, the following was used: automated exposure control, adjustment of mA and/or kV according to patient size. COMPARISON:None. FINDINGS: Image quality: Excellent. Lung bases: Lung bases are clear. Heart: Heart size is normal. Coronary atherosclerotic vascular calcifications are noted. ABDOMEN: Liver: Very small subcentimeter left hepatic lobe hypodensity (image 16/series 2) which is too small to characterize but likely represents a cyst or hemangioma. Gallbladder: Unremarkable. Biliary ducts: No intrahepatic or extrahepatic biliary ductal dilatation identified. Pancreas: Homogeneous enhancement without focal lesions or pancreatic ductal dilatation. No peripancreatic inflammation or organized fluid collections. Spleen: No splenomegaly. Splenic calcifications likely representing granulomas. Adrenal Glands: Unremarkable. Kidneys and Ureters: Kidneys are symmetric in size and enhancement, and there is no obstructive uropathy. No perinephric inflammatory changes. Ureters are normal in course and caliber. There is a 2.3 cm exophytic left renal hypodensity measuring near fluid attenuation and likely representing a cyst. Stomach and Bowel: Stomach, small bowel loops, and colon are unremarkable. Scattered colonic diverticulosis. No acute diverticulitis. The appendix is not definitively visualized. However, no secondary findings of acute inflammation are noted in the right lower quadrant. Peritoneum: No abnormal intraperitoneal fluid. No free air. Ventral Wall: No hernia. Abdominal Nodes: No retroperitoneal or mesenteric adenopathy by size criteria. Vessels: Scattered atherosclerotic calcifications of the abdominal aorta and iliac vessels without aneurysmal dilatation. The inferior vena cava appears patent. PELVIS: Pelvic Organs: Postsurgical changes of prior prostatectomy. Bladder: Unremarkable. Pelvic Nodes: No enlarged lymph nodes. Miscellaneous: No inguinal hernias are seen. Bones: No acute vertebral body compression fractures. Multilevel spondylitic changes throughout the imaged spine. No suspicious osseous lesions. Osseous fusion at L1-2. IMPRESSION: 1. CT abdomen and pelvis without acute abnormalities to explain patient's symptoms. 2. Colonic diverticulosis without acute diverticulitis. 3. Atherosclerosis. 4. Other chronic findings as above. Dictated by: Clifford Ridley M.D. on 07/05/2022 at 16:46 Approved by: Clifford Ridley M.D. on 07/05/2022 at 16:53
[2022-07-05 11:45] LABS: Estimated Glomerular Filt Rate > 60 mL/min (>60)
== END ==
PROVIDERS: Family Medicine; PCP Internal Medicine; Referring Provider Internal Medicine; Visit Provider Internal Medicine
DX: K57.30 Diverticulosis of large intestine without perforation or abscess without bleeding (principal); I70.90 Unspecified atherosclerosis
CPT/HCPCS: 36415; 74177; 82565; Q9967